=== PATIENT | female | born 1980 | race Caucasian/White ===

== ENCOUNTER 2022-07-17 13:21 | Emergency (ER) | payer MEDICAID ==
[~2022-07-17] VITALS: Ht 165.1 cm; Wt 75.0 kg
[2022-07-17 13:35] VITALS: BP 127/73
[2022-07-17] MEDS ORDERED: ketorolac trometh inj. 60 MG/2 ML VIAL IM ONE (14:20)
[2022-07-17] MEDS ORDERED: CYCL-1 PO (14:38)
[2022-07-17] MEDS ORDERED: IBUP-1986 PO (14:38)
== END 2022-07-17 14:50 | disposition home or self-care (01) ==
LOC: ER 13:21
DX: M25.511 Pain in right shoulder (principal); Z88.2 Allergy status to sulfonamides; Z79.899 Other long term (current) drug therapy; W01.0XXA Fall on same level from slipping, tripping and stumbling without subsequent striking against object, initial encounter; Y93.89 Activity, other specified; Y92.89 Other specified places as the place of occurrence of the external cause; Y99.8 Other external cause status
CPT/HCPCS: 73030; 96372; 99283; J1885; A4565

== ENCOUNTER 2022-11-02 05:48 | Emergency (ER) | payer MEDICAID ==
[~2022-11-02] VITALS: Ht 165.1 cm; Wt 84.1 kg
[~2022-11-02 05:48] MED LIST: BUPR-94 PO; BUPR300T53 PO; CYCL-1 PO; IBUP-1986 PO; LEVO-65 PO
[2022-11-02 06:01] VITALS: BP 138/87
[2022-11-02] MEDS ORDERED: LIDOcaine 1% W/epiNEPHrine 1:100,000 20ml vial IJ ONE (06:20)
[2022-11-02] MEDS ORDERED: LIDOcaine Viscous 15ml cup MM STA (06:20)
[2022-11-02] MEDS ORDERED: BUPIVAcaine/PF 2.5 mg/ml (0.25%) 30ml vial IJ ONE (06:20)
[2022-11-02] MEDS ORDERED: BUPIVAcaine 0.5% inj/PF 30 ML ONE (06:38)
[2022-11-02] MEDS ORDERED: ketorolac trometh inj. 60 MG/2 ML VIAL IM ONE (07:40)
[2022-11-02] MEDS ORDERED: KETO10TA2 PO (07:41)
[2022-11-02] MEDS ORDERED: CLIN300C54 PO (07:41)
== END 2022-11-02 08:05 | disposition home or self-care (01) ==
LOC: ER 05:48
DX: K02.9 Dental caries, unspecified (principal); Z88.2 Allergy status to sulfonamides; Z79.899 Other long term (current) drug therapy
CPT/HCPCS: 64400; 96372; 99284; J1885; S0020; A6449

== ENCOUNTER 2022-12-09 07:05 | Emergency (ER) | payer OTHER, MEDICAID ==
[~2022-12-09] VITALS: Ht 165.1 cm; Wt 215.9 kg
[~2022-12-09 07:05] MED LIST changes: +KETO10TA2 PO
[2022-12-09 07:23] VITALS: BP 120/70
[2022-12-09] MEDS ORDERED: CEPH-585 PO (08:13)
== END 2022-12-09 09:19 | disposition home or self-care (01) ==
LOC: ER 07:06
DX: L03.115 Cellulitis of right lower limb (principal); R60.0 Localized edema; Z88.2 Allergy status to sulfonamides; Z79.899 Other long term (current) drug therapy
CPT/HCPCS: 99283

== ENCOUNTER 2023-10-01 22:26 | Emergency (ER) | payer MEDICAID ==
[~2023-10-01] VITALS: Ht 165.1 cm; Wt 78.4 kg
[2023-10-01] MEDS: LIDOcaine 1% 30ml preserv. free vial IJ STA (23:23)
[2023-10-01 23:37] VITALS: BP 132/88; PULSE 98; RESP 16; TEMP 98.1; O2SAT 98
== END 2023-10-01 23:35 | disposition home or self-care (01) ==
LOC: ER 22:27
DX: S51.812A Laceration without foreign body of left forearm, initial encounter (principal); Z88.2 Allergy status to sulfonamides; Z88.8 Allergy status to other drugs, medicaments and biological substances; Z79.899 Other long term (current) drug therapy; W26.8XXA Contact with other sharp object(s), not elsewhere classified, initial encounter; Y93.89 Activity, other specified; Y92.89 Other specified places as the place of occurrence of the external cause; Y99.8 Other external cause status
CPT/HCPCS: 12001; 99282; J7030; A6258

== ENCOUNTER 2024-01-24 20:52 | Emergency (ER) | payer OTHER, MEDICAID ==
[~2024-01-24] VITALS: Ht 165.1 cm; Wt 76.1 kg
[2024-01-24 21:17] VITALS: TEMP 97.9
[2024-01-24 21:58] LABS: BILIRUBIN,URINE NEGATIVE (Neg); CLARITY,URINE SLIGHTLY CLOUDY (Clear); COLOR,URINE YELLOW (Yellow); GLUCOSE, URINE NEGATIVE (Neg); KETONES,URINE NEGATIVE (Neg); LEUKOCYTE ESTERASE ,URINE NEGATIVE (Neg); NITRITES, URINE NEGATIVE (Neg); OCCULT BLOOD,URINE NEGATIVE (Neg); PH,URINE 6.5 (4.8-8.0); PROTEIN,URINE NEGATIVE (Neg); UROBILINOGEN,URINE 0.2 E.U/dL (0.2-1.0)
[2024-01-24 22:03] LABS: UA COLLECTION TYPE CLN CATCH MIDSTREAM
[2024-01-24 22:05] LABS: SQUAMOUS EPITHELIAL CELL,UR MANY /LPF (FEW)
[2024-01-24 22:06] LABS: BACTERIA,URINE FEW /HPF (Neg); RBC,URINE 0-2 /HPF (0-2); WBC,URINE 0-4 /HPF (0-4)
[2024-01-24 22:29] LABS: BASOPHILS # (AUTO) 0.1 X10'3 (0-0.2); EOSINOPHILS # (AUTO) 0.2 X10'3 (0-0.9); HEMATOCRIT 33.4 % (35.0-45.0); HEMOGLOBIN 10.9 g/dl (12.0-16.0); LYMPHOCYTES # (AUTO) 1.8 X10'3 (1.1-4.8); LYMPHOCYTES % (AUTO) 34.3 % (21-51); MEAN CORPUSCULAR HEMOGLOBIN 28.3 PG (27.0-31.0); MEAN CORPUSCULAR HGB CONC 32.7 g/dL (33.0-36.5); MEAN CORPUSCULAR VOLUME 86.6 FL (78-98); MEAN PLATELET VOLUME 7.9 FL (7.4-10.4); MONOCYTES # (AUTO) 0.5 X10'3 (0-0.9); MONOCYTES % (AUTO) 9.9 % (2-12); NEUTROPHILS # (AUTO) 2.7 X10'3 (1.8-7.7); NEUTROPHILS % (AUTO) 51.8 % (42-75); PLATELET COUNT 315 X10'3 (140-440); RED BLOOD COUNT 3.85 X10'6 (4.20-5.60); RED CELL DISTRIBUTION WIDTH 14.6 % (11.5-14.5); WHITE BLOOD COUNT 5.3 X10'3 (4.5-11.0)
[2024-01-24 22:37] LABS: HCG SERUM QL NEGATIVE
[2024-01-24 22:42] LABS: ALANINE AMINOTRANSFERASE 25 U/L (12-78); ALBUMIN 3.6 G/DL (3.4-5.0); ALKALINE PHOSPHATASE 57 IU/L (46-116); ANION GAP 8 (8-16); ASPARTATE AMINO TRANSFERASE 16 U/L (10-37); BILIRUBIN,TOTAL 0.3 MG/DL (0.1-1.0); BLOOD UREA NITROGEN 12 MG/DL (7-18); BUN/CREATININE RATIO 15.2 (10.0-20.0); CALCIUM 9.1 MG/DL (8.5-10.1); CHLORIDE 105 MMOL/L (99-107); CREATININE 0.79 MG/DL (0.40-0.90); GLUCOSE 93 MG/DL (70-104); LIPASE 50 U/L (16-77); POTASSIUM 4.3 MMOL/L (3.5-5.1); SODIUM 139 MMOL/L (135-145); TOTAL PROTEIN 7.2 G/DL (6.4-8.2); eCRCL 82 ML/MIN; eGFR 79 ML/MIN
[2024-01-24] MEDS: ketorolac trometh. 30mg/ml inj. IM ONE (22:46)
[2024-01-24] MEDS: ondansetron 4mg rapidly disintigrating tab PO ONE (22:47)
[2024-01-24 23:23] VITALS: BP 154/92; PULSE 90; RESP 16; O2SAT 100
== END 2024-01-24 23:24 | disposition home or self-care (01) ==
LOC: ER 20:53
DX: M54.50 Low back pain, unspecified (principal); Z88.2 Allergy status to sulfonamides; Z79.899 Other long term (current) drug therapy; Z79.1 Long term (current) use of non-steroidal anti-inflammatories (NSAID); Z79.2 Long term (current) use of antibiotics
CPT/HCPCS: 36415; 74176; 80053; 81001; 83690; 84703; 85025; 96372; 99285; J1885

== ENCOUNTER 2024-06-11 11:01 | Emergency (ER) | payer OTHER, MEDICAID ==
[~2024-06-11] VITALS: Ht 165.1 cm; Wt 82.8 kg
[2024-06-11 12:06] VITALS: BP 120/70; PULSE 70; RESP 16; TEMP 98.5; O2SAT 98
== END 2024-06-11 12:09 | disposition home or self-care (01) ==
LOC: ER 11:01
DX: S90.01XA Contusion of right ankle, initial encounter (principal); Z88.2 Allergy status to sulfonamides; Z91.018 Allergy to other foods; Z79.1 Long term (current) use of non-steroidal anti-inflammatories (NSAID); Z79.899 Other long term (current) drug therapy; W20.8XXA Other cause of strike by thrown, projected or falling object, initial encounter; Y93.89 Activity, other specified; Y92.89 Other specified places as the place of occurrence of the external cause; Y99.8 Other external cause status
CPT/HCPCS: 73600; 99283